=== PATIENT | female | born 1985 | race Caucasian/White ===

== ENCOUNTER 2020-03-03 02:20 | Inpatient (IN) | payer MEDICARE, MEDICAID, SELFPAY ==
[2020-03-03] VITALS (30 sets, daily range): BP systolic 118–168; BP diastolic 56–128; PULSE 49–92; RESP 16–20; TEMP 36.5–36.9; O2SAT 96–99
[2020-03-03 03:52] LABS: HCT 37.4 % (36.0-46.0); HGB 12.9 g/dL (11.2-15.7); MCH 32.5 pg (27.0-33.0); MCHC 34.5 % (32.0-36.0); MCV 94.2 fL (80-95); Platelet Count 215 10^3/uL (130-400); RBC 3.97 10^6/uL (3.93-5.22); RDW 12.4 % (11.7-14.6); RDW-SD 42.6 fL; WBC 15.72 10^3/uL (4.4-10.8)
[2020-03-03 04:06] LABS: *AMPHETAMINES SCREEN URINE Negative (Negative); *BARBITURATES SCREEN URINE Negative (Negative); *BENZODIAZEPINES SCREEN URINE Negative (Negative); Cannabinoids THC Negative (Negative); Cocaine Screen,Urine Negative (Negative); METHADONE URINE SCREEN Negative (Negative); OPIATES URINE SCREEN Negative (Negative)
[2020-03-03 04:07] LABS: Tricyclic Antidepressants Negative (Negative)
[2020-03-03] MEDS: Lactated Ringers 500 ML IV (05:00)
[2020-03-03] MEDS: FentaNYL/ROPIvacaine 2 mcg/ml and 0.1% 200 ML CADD Cassette EP ×2 (05:00→06:15)
--- NOTE | 2020-03-03 05:49 | W.PM.OBHPL1 ---
Date of service: 03/03/20 Time of Service: 05:01 Assessment and Plan Assessment and plan (1) and not yet delivered in third trimester: Status: Acute Assessment and plan: 34 yo with opioid use disorder in remission, on suboxone, who presented early this morning after SROM for clear fluid at home, not in labor when she presented, now in active labor with frequent contractions and requesting epidural. FHT cat 1. - epidural being given now - anticipate - intermittent monitoring (2) Active labor at term: Status: Acute (3) Opioid use disorder, moderate, in early remission, on maintenance therapy: Status: Acute Assessment and plan: She has done well in the MAT program. Continue home suboxone dosing for now. Baby will require monitoring for GAIL OB-HPI Labor/Delivery History of Present Illness Reason for Visit: RULE OUT LABOR Chief Complaint: Suspected Rupture of Membranes , Associated Signs and Symptoms of Suspected ROM: large volume clear fluid. MARK Calculator Estimated Delivery Date Method Current WG Current Estimate 03/01/20 Ultrasound #1 40w 2d Comments: 34 yo who presented this morning at 40 weeks 2 days with gross rupture of membranes. On initial presentation to L&D, she was not tamera and was overall comfortable. Around 5 am, she started having painful contractions. She now requests epidural. Cervical exam on arrival on L&D was 3-4/50/-1; At 5 am was 5/100/0. history notable for suboxone use through the [facility] program. She has done well with this, consistent UDS and participation in the program. Has also been measuring large for dates but growth scans and LACHO have been unremarkable. GBS negative. Rh positive. Rubella immune. Medical history otherwise notable for history of schizophrenia and epilepsy, current not requiring medications, obesity and tobacco abuse. History of Present Expected Delivery Route/Plan Specific Issues/Plan Opioid use disorder, in remission, on suboxone therapy 16-4mg, will require dose adjustment likely . Baby will need monitoring for withdrawal. Assessment: History Reviewed & Current Review of Systems All systems reviewed & are unremarkable except as noted in HPI and below PFSH Medical History Epilepsy Schizophrenia Social History Smoking/Tobacco Use Status: Current every day Tobacco Type: cigarettes Smoking risk assessment performed?: Yes Alcohol Intake: former Drug use: Current Sobriety Substance use type: does not use and former substance user Do you feel safe at home: Yes Do you feel safe in your relationship?: No History History 2 Para 1 Hx # Term Pregnancies Multiple births Hx # Pregnancies Ectopic pregnancies AB induced Hx Number of Living Children AB spontaneous Meds Home Medications and Allergies Home Medications Medication Instructions Recorded Confirmed Type buprenorphine-naloxone 2 tab SUBLINGUAL 03/03/20 History Allergies Allergy/AdvReac Type Severity Reaction Status Date / Time No Known Allergies Allergy Verified 03/03/20 06:09 Exam Physical Exam Vital signs: Temp Pulse Resp BP Pulse Ox 36.6 C 92 H 20 120/82 99 03/03/20 05:12 03/03/20 05:12 03/03/20 05:12 03/03/20 05:12 03/03/20 05:12 Detailed Labor and Delivery Exam Dilation: 5 Effacement (%): 100 station: 0 Franklin Score: Cervical Points Exam 0 1 2 3 Dilation Closed 1-2cm 3-4 cm 5-6cm Effacement 0-30% 40-50% 60-70% 80% Consistency Firm Medium Soft Station -3 -2 -1,0 +1,+2 Position Posterior Mid Anterior Amniotic Membrane Status: Ruptured Rupture Method: Spontaneous Amniotic Fluid: Clear Pooling: Positive Contraction Frequency(min): 2-3 Contraction Duration(sec): 60 Fetus A Heart Rate Baseline: 110 Monitor Accelerations: 15 X 15 Monitor Decelerations: None Variability: Moderate (6-25 BPM) Presentation: Vertex Categories: Category I Est. Weight: 8 g Date of Membrane Rupture: 03/02/20 Time of Membrane Rupture: 23:00 Respiratory Exam Respiratory Exam: Normal Cardiovascular Exam Cardiovascular Exam: Normal Abdominal Exam Abdominal Exam: Normal Extremities Exam Extremities Exam: Normal Neurological Exam Neurological Exam: Normal Psychiatric Exam Psychiatric Exam: Normal Results Abnormal Lab Findings: Abnormal Labs 03/03/20 03:40 WBC 15.72 H Risk Assessment Risk for Shoulder Dystocia Increased Risk?: No Risk for Pre-Eclampsia Yes, if one or more: NEGATIVE FOR: Hx Pre-E/Gest HTN, Chronic HTN, Multiple Gestation, Pre-gestational DM, Renal Disease, Systemic Lupus or APA Syndrome Yes, if 2 or more: POSITIVE FOR: >10yr btwn pregnancies and BMI>30 Risk for Post- Hemorrhage Initial: NEGATIVE FOR: Multiple Gestation, Previous PPH, Known Clotting Deficiency, Grand Multiparity or Anticoagulation At Risk?: No Risks Reviewed Risks Reviewed Upon Admission: Yes
[2020-03-03] MEDS: Oxytocin/Normal Saline 30 UNITS/500 ML BAG 200 UNITS IV (07:25)
--- NOTE | 2020-03-03 07:29 | OBVDS_ITS ---
Date of service: 03/03/20 Time of Service: 07:29 OB Labor/ Delivery Information Baby A Delivery Delivery Method: Spontaneaous Presentation: Vertex Vertex Position: Right Occipital Anterior Cord Description-Baby A: 3 Vessels Amniotic Fluid: Clear Estimated Blood Loss: 200 Delivery Outcome: Liveborn Infant Transferred: Remains with Mother Note: 34 yo who presented after SROM at home early this morning, in early labor. Quickly progressed to active labor and received an epidural, after which she was found to be fully dilated. FHT cat 1 until after epidural, when baseline dropped below previous baseline of 110, to around 100, into the 90s at times. Recovered with oxygen and repositioning, variability remained moderate throughout. She pushed effectively and delivered a vigorous male over an intact perineum. Pitocin given IV. Cord was clamped and cut with cord blood, and section of cord for cordstat obtained. Placenta delivered spontaneously and was intact with three vessel cord. Fundus firm after delivery. Mother and [id number]. APGARs 8/9. Providers Doctor: Lakesha Perry Safety And Occupational Health Manager: Santos Villegas Tutoring Manager: Phuc Najera Nurse: Jayne Lopez Nurse: Azucena Tucker Labor/Delivery Information Number of Babies in Womb: 1 Steroids Given: None Reason Steroids Not Administered: N/A Group Beta Strep: Negative Antibiotics Administered: No Rubella Status: Immune Blood Type: B+ Born En Route: No Shoulder Dystocia: No Stages of Labor Onset of Labor Date: 03/03/20 Onset of Labor Time: 05:00 ROM Baby A: 03/02/20 ROM Baby A: 23:00 ROM Total Time- Baby A: [id number] Delivery Date-Baby A: 03/03/20 Infant Delivery Time-Baby A: 07:12 Total Length of Labor-Baby A: 2 hours and 12 minutes Placenta Cultured: No Placenta Status: Delivered Baby A Infant Gender: Male Gestational Status: Term (39-41.6 wks) Gestational Age in Weeks/Days: 40 Weeks and 2 Days Weight Comment: pending Score-1 Minute Interval(Baby A) Heart Rate-1 minute: 100 BPM or Greater Respiratory Effort- 1 minute: Spontaneous/Strong Cry Muscle Tone-1 minute: Active Movement Reflex Response-1 minute: Prompt Response Color-1 minute: Pallor or Cyanosis Score-5 Minute Interval(Baby A) Heart Rate- 5 minute: 100 BPM or Greater Respiratory Effort-5 minute: Spontaneous/Strong Cry Muscle Tone-5 minute: Active Movement Reflex Response-5 minute: Prompt Response Color-5 minute: Bluish Hands or Feet Interventions Oxygen , Indication: decreased heart rate ./ Pain Management Interventions: Epidural and Nitrous Oxide , used until she received epidural .
[2020-03-03] MEDS: Buprenorphine/Naloxone 8 mg/2 mg FILM 2 EACH SL (09:22)
[2020-03-03] MEDS: Lactated Ringers 250 ML 500 ML IV (14:14)
[2020-03-03 20:38] LABS: COVID-19 RT-PCR UVMMC Result Negative (Negative)
[2020-03-04 04:30] VITALS: BP 142/87; PULSE 60; RESP 18
[2020-03-04] MEDS: Ibuprofen 600 MG TAB PO (04:52)
[2020-03-04 08:30] VITALS: BP 134/67; PULSE 59; RESP 16; TEMP 36.5; O2SAT 100
[2020-03-04] MEDS: Buprenorphine/Naloxone 8 mg/2 mg FILM 2 EACH SL (08:44)
[2020-03-04] MEDS: Docusate Sodium 100 MG CAP PO (08:46)
--- NOTE | 2020-03-04 13:49 | W.PM.OBPNV1 ---
Date of service: 03/04/20 Time of Service: 13:49 Assessment and Plan Assessment and plan (1) Status post vaginal delivery: Status: Acute Assessment and plan: PPD#1 s/p . Intact perineum. Minimal lochia. Eating/drinking, voiding well. Mood is good. Encouraged ambulation. Routine care. (2) Opioid use disorder, moderate, in early remission, on maintenance therapy: Status: Acute Assessment and plan: Stable in MAT program. Continue home suboxone dosing. Subjective Subjective Interval history: PPD#1 after . Doing well. No questions or concerns. Minimal lochia. Patient comments: No complaints, Pain well controlled, Tolerating diet and Flatus present; no Bowel Movement Patient's Mood: good [place] baby status: Doing well, Rooming in and Strong Bonding Observed [place] feeding status: Exclusively formula feeding Exam Physical Exam Vital signs: Temp Pulse Resp BP Pulse Ox 36.5 C 60 18 142/87 H 97 03/03/20 20:30 03/04/20 04:30 03/04/20 04:30 03/04/20 04:30 03/03/20 16:00 Constitutional Constitutional: no acute distress HEENT Exam HEENT Exam: Normal Respiratory Exam Respiratory Exam: Normal Cardiovascular Exam Cardiovascular Exam: Normal Fundal Exam Fundus: Below Umbilicus and Firm Exam Perineum: Intact Extremities Exam Extremity Exam: Normal Psychiatric Exam Psychiatric Exam: Normal Results Hemoglobin/Hematocrit: Hgb 12.9 g/dL (11.2-15.7) 03/03/20 03:40 Hct 37.4 % (36.0-46.0) 03/03/20 03:40 Abnormal Lab Findings: Abnormal Labs 03/03/20 03:40 WBC 15.72 H
[2020-03-04 17:00] VITALS: BP 127/79; PULSE 64; RESP 16; TEMP 36.6; O2SAT 97
--- NOTE | 2020-03-04 17:42 | NUR.NOTE ---
03/04/20 1730 As nurse was entering Patient's room to check feeding log, Dad quickly closed bathroom door and was standing at sink by door drying his hands. There was a subtle fruty smell in the room. Mom was standing next bed as baby was sleeping in the middle of the bed.
[2020-03-04 20:04] VITALS: BP 136/75; PULSE 71; RESP 18; TEMP 36.8
[2020-03-05 07:40] VITALS: BP 149/75; PULSE 67; RESP 18; TEMP 36.4; O2SAT 98
--- NOTE | 2020-03-05 07:57 | W.PM.OBPNV1 ---
Date of service: 03/05/20 Time of Service: 07:57 Assessment and Plan Assessment and plan (1) Status post vaginal delivery: Status: Acute Assessment and plan: Faustina is doing well with pain controlled, lochia controlled, BM passed. Her BP is elevated in the 140s. I would like to continue to monitor her BP q2h throught today and will re evaluate in the afternoon. Otherwise routine care. (2) Opioid use disorder, moderate, in early remission, on maintenance therapy: Status: Acute Subjective Subjective Patient comments: Pain well controlled, Tolerating diet, Flatus present and Bowel Movement baby status: Doing well and Bottle feeding well (somewhat disorganized suck) feeding status: Exclusively formula feeding Narrative: PPD2 doing well. Faustina is up and about, had a BM. Pain controlled with only some pain at epidural sight and uterine cramping. Lochia decreasing. No headaches or vision changes. Edema trace. Her BPs have been somewhat elevated and I would like to hold off on DC until that has stabilized. Will check q2h BPs through today and consider DC this afternoon. Exam Physical Exam Vital signs: Temp Pulse Resp BP Pulse Ox 36.8 C 71 18 136/75 97 03/04/20 20:04 03/04/20 20:04 03/04/20 20:04 03/04/20 20:04 03/04/20 17:00 Constitutional Constitutional: no acute distress HEENT Exam HEENT Exam: Normal Respiratory Exam Respiratory Exam: Normal Cardiovascular Exam Cardiovascular Exam: Normal Fundal Exam Fundus: Below Umbilicus and Firm Extremities Exam Extremity Exam: Normal Neurological Exam Neurological Exam: Normal Psychiatric Exam Psychiatric Exam: Normal Results Hemoglobin/Hematocrit: Hgb 12.9 g/dL (11.2-15.7) 03/03/20 03:40 Hct 37.4 % (36.0-46.0) 03/03/20 03:40 Abnormal Lab Findings: Abnormal Labs 03/03/20 03:40 WBC 15.72 H
[2020-03-05] MEDS: Buprenorphine/Naloxone 8 mg/2 mg FILM 2 EACH SL (08:00)
[2020-03-05 10:13] VITALS: BP 141/68; PULSE 72; RESP 18; TEMP 36.8; O2SAT 96
--- NOTE | 2020-03-05 10:30 | NUR.NOTE ---
03/05/20 10:20 At 9:10 Patient told nurse she was going to shower and then would like help getting baby to latch around 10am when she needed her B/P checked again. Nurse went in at 10:20 to help patient with latching baby, Patient has now decided to hold off until this afternoon, was going to warm formula up to feed baby instead.
[2020-03-05 11:50] VITALS: BP 126/68; PULSE 64; RESP 18; TEMP 36.5; O2SAT 98
[2020-03-05 15:00] VITALS: BP 137/81; PULSE 74; RESP 18; TEMP 36.7; O2SAT 97
--- NOTE | 2020-03-06 09:34 | W.PM.OBDISCH ---
Date of service: 03/05/20 Time of Service: 16:34 DS: Diagnosis Discharge Diagnosis (1) Status post vaginal delivery: Status: Acute Asessment and Plan: Faustina is PPD 2, doing well. Minimal Lochia, pain well controlled. BM passed, voiding well. She is quite stressed with no care as it just broke down, but otherwise doing ok. BP has been somewhat elevated since delivery, but no headaches, vision changes, or edema. Will continue to monitor BP as Outpatient and she knows to alert me should she become symptomatic. (2) Opioid use disorder, moderate, in early remission, on maintenance therapy: Status: Acute Asessment and Plan: Doing well, continue previous outpatient plan, follow up in clinic next week. Continue 16mg Suboxone daily. Discharge Plan Disposition Patient Disposition: OTHER Condition: Good Discharge Details Reason For Visit: RULE OUT LABOR Admit Date/Time: 03/03/20 02:20 Admit Provider: Phuc Najera Attending Provider: Phuc Njaera Primary Care Provider: Phuc Najera Home Meds and New Rx's Prescriptions: No Action buprenorphine-naloxone 8-2 mg tablet, sublingual 2 tab SUBLINGUAL RF: 0 Discharge Instructions Stand Alone Forms: BC Post Vaginal Deliver Activity:: Activity as Tolerated Equipment/Supplies:: No Equipment Needed Diet:: As Tolerated Discharge Orders Discharge Orders: Discharge Order (Routine); Ordered 03/05/20 Ordered By: Lakesha Perry Discharge Data Discharge Date/Time-TO BE ENTERED AT DEPARTURE: 03/05/20 17:30 OB:DS Summary Summary Vaginal Delivery Method: Spontaneaous Episiotomy Description: None Laceration Description: None Contraception Discussed Contraception Discussed: Yes, [place] Infant Gender-Baby A: Male weight: 3550 g Status at Discharge Functional status at discharge: independent ambulation Overall status at discharge: patient is back to baseline Mental Status: mental status grossly normal Speech and Movement: speech and movement normal Mood: congruent mood Affect: normal affect Exam Physical Exam Vital signs: Temp Pulse Resp BP Pulse Ox 36.7 C 74 18 137/81 97 03/05/20 15:00 03/05/20 15:00 03/05/20 15:00 03/05/20 15:00 03/05/20 15:00 Vital Signs Reviewed: Yes Constitutional Constitutional: no acute distress HEENT Exam HEENT Exam: Normal Respiratory Exam Respiratory Exam: Normal Cardiovascular Exam Cardiovascular Exam: Normal Fundal Exam Fundus: Below Umbilicus and Firm Extremities Exam Extremity Exam: Normal Psychiatric Exam Psychiatric Exam: Normal [facility] Medical History (Updated 03/05/20 @ 08:04 by Phuc Najera) Active labor at term Epilepsy and not yet delivered in third trimester Schizophrenia Social History Smoking/Tobacco Use Status: Current every day Tobacco Type: cigarettes Smoking risk assessment performed?: Yes Alcohol Intake: former Drug use: Current Sobriety Substance use type: does not use and former substance user Do you feel safe at home: Yes Do you feel safe in your relationship?: No History History 2 Para 1 Hx # Term Pregnancies Multiple births Hx # Pregnancies Ectopic pregnancies AB induced Hx Number of Living Children AB spontaneous DS: Data Vitals/I&O Vitals and I&O: Vital Signs Temperature 36.7 C 03/05/20 15:00 Temperature Source Oral 03/05/20 15:00 Pulse 74 03/05/20 15:00 Pulse Rhythm Regular 03/05/20 07:40 Respiratory Rate 18 03/05/20 15:00 Blood Pressure 137/81 03/05/20 15:00 Blood Pressure Mean 90 03/03/20 10:45 Pulse Oximetry 97 03/05/20 15:00 Oxygen Delivery Method Room Air 03/05/20 15:00 Oxygen Flow Rate 0 03/05/20 15:00 Pain Level 0 03/05/20 15:00 Comment 03/05/20 07:40 Intake & Output 03/05/20 03/05/20 03/06/20 11:59 23:59 11:59 Intake Total 500 / 500 Balance 500 / 500 Intake: Oral 500 / 500
== END 2020-03-05 17:30 | disposition other institution (70) | DRG 806 ==
PROVIDERS: Admitting Provider Family Medicine; PCP Family Medicine; Visit Provider Family Medicine
DX: O99.324 Drug use complicating childbirth (principal); O99.354 Diseases of the nervous system complicating childbirth; Z37.0 Single live birth; F11.21 Opioid dependence, in remission; G40.909 Epilepsy, unspecified, not intractable, without status epilepticus; O99.344 Other mental disorders complicating childbirth; F20.9 Schizophrenia, unspecified; Z3A.40 40 weeks gestation of pregnancy; Z11.52 Encounter for screening for COVID-19
CPT/HCPCS: 36415; 80307; 85027; 86850; 86900; 86901; U0003